=== PATIENT | male | born 1965 | race Caucasian/White ===

== ENCOUNTER 2017-01-29 09:21 | Emergency (ER) | payer SELFPAY ==
[2017-01-29 12:53] VITALS: BP 133/84
--- NOTE | 2017-01-29 13:51 | Emergency Department Report ---
ED ENT HPI - General Chief complaint: Sore Throat Stated complaint: VALE Time Seen by Provider: 01/29/17 12:38 Source: patient Mode of arrival: Ambulatory Limitations: No Limitations - History of Present Illness Initial comments: Patient states that he woke up this morning and noticed that he had a sore throat and it felt swollen and having pain with swallowing; denies fevers, cough and ear pain MD complaint: sore throat, difficulty swallowing -: This morning Location: throat Severity: moderate Severity scale (0 -10): 6 Quality: sharp Consistency: intermittent Worsens with: swallowing Associated Symptoms: pain with swallowing, sore throat. denies: fever, cough, gum swelling, toothache, hearing loss, discharge from ear, rhinorrhea - Related Data Previous Rx's Medication Instructions Recorded Last Taken Type Ondansetron [Zofran Odt] 4 mg PO TID PRN #15 tab.rapdis 01/19/16 Unknown Rx Sennosides/Docusate Sodium 1 each PO BID #16 tablet 01/19/16 Unknown Rx [Senna-Docusate Sodium Tablet] oxyCODONE /ACETAMINOPHEN [Percocet 1 tab PO Q6HR PRN #20 tablet 01/19/16 Unknown Rx 5/325] Allergies Allergy/AdvReac Type Severity Reaction Status Date / Time No Known Allergies Allergy Verified 01/15/16 12:01 ED Dental HPI - General Chief complaint: Sore Throat Stated complaint: VALE Time Seen by Provider: 01/29/17 12:38 Source: patient Mode of arrival: Ambulatory Limitations: No Limitations - Related Data Previous Rx's Medication Instructions Recorded Last Taken Type Ondansetron [Zofran Odt] 4 mg PO TID PRN #15 tab.rapdis 01/19/16 Unknown Rx Sennosides/Docusate Sodium 1 each PO BID #16 tablet 01/19/16 Unknown Rx [Senna-Docusate Sodium Tablet] oxyCODONE /ACETAMINOPHEN [Percocet 1 tab PO Q6HR PRN #20 tablet 01/19/16 Unknown Rx 5/325] Allergies Allergy/AdvReac Type Severity Reaction Status Date / Time No Known Allergies Allergy Verified 01/15/16 12:01 ED Review of Systems ROS: Stated complaint: VALE Other details as noted in HPI Constitutional: denies: chills, fever Eyes: denies: eye discharge ENT: throat pain, congestion (chronic). denies: ear pain, dental pain, hearing loss, epistaxis Respiratory: denies: cough, shortness of breath, wheezing Cardiovascular: denies: chest pain, palpitations Gastrointestinal: denies: abdominal pain, nausea, vomiting, diarrhea Musculoskeletal: denies: back pain, myalgia Skin: denies: rash Neurological: denies: headache, weakness ED Past Medical Hx - Past Medical History Hx Congestive Heart Failure: No Hx Diabetes: No Hx Liver Disease: Yes (biliary obstructions, elevated enyzmes) Hx Asthma: No Hx COPD: No Hx HIV: No - Social History Smoking Status: Never Smoker Substance Use Type: Alcohol - Medications Home Medications: Home Medications Medication Instructions Recorded Confirmed Last Taken Type Ondansetron [Zofran Odt] 4 mg PO TID PRN #15 tab.rapdis 01/19/16 Unknown Rx Sennosides/Docusate Sodium 1 each PO BID #16 tablet 01/19/16 Unknown Rx [Senna-Docusate Sodium Tablet] oxyCODONE /ACETAMINOPHEN [Percocet 1 tab PO Q6HR PRN #20 tablet 01/19/16 Unknown Rx 5/325] ED Physical Exam - General Limitations: No Limitations General appearance: alert, in no apparent distress - Head Head exam: Present: atraumatic, normocephalic, normal inspection - Eye Eye exam: Present: normal appearance, PERRL, EOMI Pupils: Present: normal accommodation - ENT ENT exam: Present: mucous membranes moist, TM's normal bilaterally, normal external ear exam. Absent: normal orophraynx (Pharynx - erythematous and edematous) - Neck Neck exam: Present: full ROM, lymphadenopathy (mild submandibular lymphadenopathy). Absent: tenderness - Respiratory Respiratory exam: Present: normal lung sounds bilaterally. Absent: respiratory distress, wheezes, rales, rhonchi, stridor - Cardiovascular Cardiovascular Exam: Present: regular rate, normal rhythm, normal heart sounds - Extremities Exam Extremities exam: Present: full ROM - Back Exam Back exam: Present: full ROM - Neurological Exam Neurological exam: Present: alert, oriented X3, normal gait - Psychiatric Psychiatric exam: Present: normal affect, normal mood - Skin Skin exam: Present: warm, dry, intact, normal color. Absent: rash ED Course Vital Signs 01/29/17 01/29/17 09:28 12:20 Temperature 99.0 F 98.3 F Pulse Rate 93 H 65 Respiratory 20 18 Rate Blood Pressure 145/94 Blood Pressure 133/84 [Right] O2 Sat by Pulse 98 100 Oximetry - Reevaluation(s) Reevaluation #1: 01/29/17 13:54 Medicated with decadron ED Medical Decision Making - Medical Decision Making Told patient to gargle with warm salt water every 2 hours, drink plenty of fluids, tylenol or motrin for fevers or pain and follow up with PCP if sxs don' t improve, he verbalized understanding Critical care attestation.: If time is entered above; I have spent that time in minutes in the direct care of this critically ill patient, excluding procedure time. ED Disposition Clinical Impression: Acute pharyngitis Qualifiers: Pharyngitis/tonsillitis etiology: unspecified etiology Qualified Code(s): J02.9 - Acute pharyngitis, unspecified Disposition: DISCHARGED TO HOME OR SELFCARE Is pt being admited?: No Does the pt Need Aspirin: No Condition: Stable Instructions: Pharyngitis (ED) Referrals: PRIMARY CARE, [Primary Care Provider] - 3-5 Days Time of Disposition: 13:56 Print Language: RWANDAN
[2017-01-29] MEDS ORDERED: DECADRON PO ONE (13:53)
== END 2017-01-29 14:08 | disposition home or self-care (01) ==
LOC: ED 09:21
DX: J02.9 Acute pharyngitis, unspecified (principal)
CPT/HCPCS: 87116; 87430; 99282; J8540

== ENCOUNTER 2017-07-11 07:07 | Emergency (ER) | payer SELFPAY ==
[2017-07-11] MEDS ORDERED: BENADRYL IV ONE (07:33)
[2017-07-11] MEDS ORDERED: PEPCID IV ONE (07:33)
[2017-07-11] MEDS ORDERED: DECADRON IV ONE (07:33)
--- NOTE | 2017-07-11 08:04 | Emergency Department Report ---
ED Shortness of Breath HPI - General Chief Complaint: Dyspnea/Respdistress Stated Complaint: THROAT SWELLING/DRY MOUTH Time Seen by Provider: 07/11/17 07:26 Source: patient Mode of arrival: Ambulatory Limitations: No Limitations - History of Present Illness Initial Comments: 52-year-old male with a past medical history of biliary obstruction treated with ERCP and January presents to the hospital complaining of throat swelling, dry mouth, shortness of breath. Symptoms started at 5:30 AM upon awaking. Symptoms are constant without urinating or alleviating factors. No wheezing or rash reported. Patient took antacid for burning epigastric pain last night. He has taken this medication in the past. Denies any new medication. Medical record reviewed. The patient was here in January with similar symptoms. Improved after by mouth Decadron. Diagnosis at time pharyngitis. Strep screen was negative - Related Data Previous Rx's Medication Instructions Recorded Last Taken Type Ondansetron [Zofran Odt] 4 mg PO TID PRN #15 tab.rapdis 01/19/16 Unknown Rx Sennosides/Docusate Sodium 1 each PO BID #16 tablet 01/19/16 Unknown Rx [Senna-Docusate Sodium Tablet] oxyCODONE /ACETAMINOPHEN [Percocet 1 tab PO Q6HR PRN #20 tablet 01/19/16 Unknown Rx 5/325] Famotidine [Pepcid] 20 mg PO BID #60 tablet 07/11/17 Unknown Rx Prednisone [predniSONE 10 mg 10 mg PO .TAPER #1 tab.ds.pk 07/11/17 Unknown Rx (6-Day Pack, 21 Tabs)] diphenhydrAMINE [Benadryl CAP] 25 mg PO Q6HR PRN #30 capsule 07/11/17 Unknown Rx Allergies Allergy/AdvReac Type Severity Reaction Status Date / Time No Known Allergies Allergy Verified 01/15/16 12:01 ED Review of Systems ROS: Stated complaint: THROAT SWELLING/DRY MOUTH Other details as noted in HPI Comment: All other systems reviewed and negative Other: Constitutional: No fevers chills Eyes: No eye pain visual changes ENT: as per hpi Neck: Denies pain Respiratory: hortness of breath Cardiovascular: Denies chest pain GI: Denies abdominal pain, nausea, vomiting : Denies dysuria Musculoskeletal: Denies back pain Skin: Denies rash, lesions, erythema Neurologic: Denies headache, numbness, weakness Psychiatric: Denies suicidal ideation, hallucinations ED Past Medical Hx - Past Medical History Previous Medical History?: Yes Hx Congestive Heart Failure: No Hx Diabetes: No Hx Liver Disease: Yes (biliary obstructions, elevated enyzmes) Hx Asthma: No Hx COPD: No Hx HIV: No - Surgical History Past Surgical History?: No - Social History Smoking Status: Never Smoker Substance Use Type: None - Medications Home Medications: Home Medications Medication Instructions Recorded Confirmed Last Taken Type Ondansetron [Zofran Odt] 4 mg PO TID PRN #15 tab.rapdis 01/19/16 Unknown Rx Sennosides/Docusate Sodium 1 each PO BID #16 tablet 01/19/16 Unknown Rx [Senna-Docusate Sodium Tablet] oxyCODONE /ACETAMINOPHEN [Percocet 1 tab PO Q6HR PRN #20 tablet 01/19/16 Unknown Rx 5/325] Famotidine [Pepcid] 20 mg PO BID #60 tablet 07/11/17 Unknown Rx Prednisone [predniSONE 10 mg 10 mg PO .TAPER #1 tab.ds.pk 07/11/17 Unknown Rx (6-Day Pack, 21 Tabs)] diphenhydrAMINE [Benadryl CAP] 25 mg PO Q6HR PRN #30 capsule 07/11/17 Unknown Rx ED Physical Exam - General Limitations: No Limitations - Other Other exam information: General: No limitations, patient is alert in no acute distress Head exam: Atraumatic, normocephalic Eyes exam: Normal appearance, pupils equal reactive to light, extraocular movements intact ENT: Moist mucous membrane, some mild redness to the posterior pharynx is without swelling, exudates, or thrush. No stridor, no muffled voice Neck exam: Normal inspection, full range of motion, no meningismus nontender Respiratory exam: Clear to auscultation bilateral, no wheezes, rales, crackles Cardiovascular: Normal rate and rhythm, normal heart sounds Abdomen: Soft, nondistended, and nontender, with normal bowel sounds, no rebound, or guarding Extremity: Full range of motion normal inspection no deformity Back: Normal Inspection, full range of motion, no tenderness Neurologic: Alert, oriented x3, cranial nerves intact, no motor or sensory deficit Psychiatric: normal affect, normal mood Skin: Warm, dry, intact ED Course Vital Signs 07/11/17 07/11/17 07/11/17 07:19 07:42 07:45 Temperature 98.1 F Pulse Rate 84 90 Respiratory 22 15 12 Rate Blood Pressure 156/104 O2 Sat by Pulse 100 98 98 Oximetry 07/11/17 07/11/17 07/11/17 07:46 08:00 08:15 Temperature Pulse Rate 71 77 71 Respiratory 12 19 Rate Blood Pressure 157/103 137/88 O2 Sat by Pulse 97 95 Oximetry - Reevaluation(s) Reevaluation #1: 07/11/17 09:05 pt states throat tightness is improving but his mouth still feels dry. Reevaluation #2: 07/11/17 09:17 Patient states he feels better and ready to go ED Medical Decision Making - Medical Decision Making no visible swelling, hoarseness, voice changes, stridor, or respiratory distress noted. I will place patient on H2 aria for GERD symptoms and treat several days with steroids and Benadryl for allergic reaction. Outpatient follow-up with temp recruiter and PMD will be suggested - Differential Diagnosis infection, allergic reaction, angioedema Critical Care Time: No Critical care attestation.: If time is entered above; I have spent that time in minutes in the direct care of this critically ill patient, excluding procedure time. ED Disposition Clinical Impression: Throat tightness, GERD (gastroesophageal reflux disease) Disposition: - TO HOME OR SELFCARE Is pt being admited?: No Does the pt Need Aspirin: No Condition: Stable Instructions: Allergies (ED), Gastroesophageal Reflux in Children (ED) Additional Instructions: Take the medication as prescribed. Follow up with the primary care doctor and temp recruiter. Return if symptoms worsen. [place] la medicacin segn lo prescrito. Seguimiento con el mdico de atencin primaria y alergista. Regrese si los sntomas empeoran Prescriptions: diphenhydrAMINE [Benadryl CAP] 25 mg PO Q6HR PRN #30 capsule PRN Reason: Allergic Reaction Famotidine [Pepcid] 20 mg PO BID #60 tablet Prednisone [predniSONE 10 mg (6-Day Pack, 21 Tabs)] 10 mg PO .TAPER #1 tab.ds.pk Referrals: [facility] [Provider Group] - 3-5 Days (Primary care clinic) TIM BOONE MD [Staff Physician] - 3-5 Days (Social Organization Professor) KAHLIL PATRICK MD [Referring] - 3-5 Days (Social Organization Professor) KENDALL BEE MD [Referring] - 3-5 Days (Social Organization Professor) Time of Disposition: 09:21 Print Language: YI
[2017-07-11 09:23] VITALS: BP 147/86
== END 2017-07-11 09:33 | disposition home or self-care (01) ==
LOC: ED 07:07
DX: K21.9 Gastro-esophageal reflux disease without esophagitis (principal)
CPT/HCPCS: 82962; 96374; 96375; 99283; J1100; J1200

== ENCOUNTER 2017-10-19 21:05 | Emergency (ER) | payer OTHER ==
[2017-10-19] MEDS ORDERED: MOTRIN PO ONE (21:27)
--- NOTE | 2017-10-20 03:13 | Emergency Department Report ---
ED ENT HPI - General Chief complaint: Sore Throat Stated complaint: SORE THROAT Time Seen by Provider: 10/20/17 01:07 Source: patient Mode of arrival: Ambulatory Limitations: No Limitations - History of Present Illness Initial comments: This is a 52 y.o. male presenting with sore throat and difficulty swallowing. Patient states he was here 3 months ago with the same thing. He was advised to follow up with allergy but he didn't go because4 it got better. He isn't sure if he ate something to cause symptoms. States his mouth is so dry, he is drinking water all the time. He felt like his throat was closing up. MD complaint: sore throat, difficulty swallowing -: days(s) (2) Location: throat Severity: moderate Severity scale (0 -10): 7 Quality: aching Consistency: intermittent Improves with: none Worsens with: swallowing, eating Associated Symptoms: cough, sore throat. denies: fever, gum swelling, toothache , pain with swallowing, tinnitus, hearing loss, discharge from ear, rhinorrhea - Related Data Previous Rx's Medication Instructions Recorded Last Taken Type Ondansetron [Zofran Odt] 4 mg PO TID PRN #15 tab.rapdis 01/19/16 Unknown Rx Sennosides/Docusate Sodium 1 each PO BID #16 tablet 01/19/16 Unknown Rx [Senna-Docusate Sodium Tablet] oxyCODONE /ACETAMINOPHEN [Percocet 1 tab PO Q6HR PRN #20 tablet 01/19/16 Unknown Rx 5/325] Famotidine [Pepcid] 20 mg PO BID #60 tablet 07/11/17 Unknown Rx Prednisone [predniSONE 10 mg 10 mg PO .TAPER #1 tab.ds.pk 07/11/17 Unknown Rx (6-Day Pack, 21 Tabs)] diphenhydrAMINE [Benadryl CAP] 25 mg PO Q6HR PRN #30 capsule 07/11/17 Unknown Rx Prednisone [predniSONE 5 mg (6-Day 5 mg PO .TAPER #1 tab.ds.pk 10/20/17 Unknown Rx Pack, 21 Tabs)] Allergies Allergy/AdvReac Type Severity Reaction Status Date / Time No Known Allergies Allergy Verified 01/15/16 12:01 ED Dental HPI - General Chief complaint: Sore Throat Stated complaint: SORE THROAT Time Seen by Provider: 10/20/17 01:07 Source: patient Mode of arrival: Ambulatory Limitations: No Limitations - Related Data Previous Rx's Medication Instructions Recorded Last Taken Type Ondansetron [Zofran Odt] 4 mg PO TID PRN #15 tab.rapdis 01/19/16 Unknown Rx Sennosides/Docusate Sodium 1 each PO BID #16 tablet 01/19/16 Unknown Rx [Senna-Docusate Sodium Tablet] oxyCODONE /ACETAMINOPHEN [Percocet 1 tab PO Q6HR PRN #20 tablet 01/19/16 Unknown Rx 5/325] Famotidine [Pepcid] 20 mg PO BID #60 tablet 07/11/17 Unknown Rx Prednisone [predniSONE 10 mg 10 mg PO .TAPER #1 tab.ds.pk 07/11/17 Unknown Rx (6-Day Pack, 21 Tabs)] diphenhydrAMINE [Benadryl CAP] 25 mg PO Q6HR PRN #30 capsule 07/11/17 Unknown Rx Prednisone [predniSONE 5 mg (6-Day 5 mg PO .TAPER #1 tab.ds.pk 10/20/17 Unknown Rx Pack, 21 Tabs)] Allergies Allergy/AdvReac Type Severity Reaction Status Date / Time No Known Allergies Allergy Verified 01/15/16 12:01 ED Review of Systems ROS: Stated complaint: SORE THROAT Other details as noted in HPI Constitutional: no symptoms reported, see HPI. denies: chills, diaphoresis, fever, malaise, weakness Eyes: as per HPI. denies: eye pain, eye discharge, vision change ENT: as per HPI, throat pain. denies: ear pain, dental pain, hearing loss, epistaxis, congestion Respiratory: no symptoms reported, see HPI, cough. denies: orthopnea, shortness of breath, SOB with exertion, SOB at rest, stridor, wheezing Cardiovascular: as per HPI. denies: chest pain, palpitations, dyspnea on exertion, orthopnea, edema, syncope, paroxysmal nocturnal dyspnea Neurological: as per HPI. denies: headache, weakness, numbness, paresthesias, confusion, abnormal gait, vertigo Psychiatric: as per HPI. denies: anxiety, depression, auditory hallucinations, visual hallucinations, homicidal thoughts, suicidal thoughts ED Past Medical Hx - Past Medical History Hx Congestive Heart Failure: No Hx Diabetes: No Hx Liver Disease: Yes (biliary obstructions, elevated enyzmes) Hx Asthma: No Hx COPD: No Hx HIV: No - Surgical History Past Surgical History?: No - Social History Smoking Status: Never Smoker Substance Use Type: None - Medications Home Medications: Home Medications Medication Instructions Recorded Confirmed Last Taken Type Ondansetron [Zofran Odt] 4 mg PO TID PRN #15 tab.rapdis 01/19/16 Unknown Rx Sennosides/Docusate Sodium 1 each PO BID #16 tablet 01/19/16 Unknown Rx [Senna-Docusate Sodium Tablet] oxyCODONE /ACETAMINOPHEN [Percocet 1 tab PO Q6HR PRN #20 tablet 01/19/16 Unknown Rx 5/325] Famotidine [Pepcid] 20 mg PO BID #60 tablet 07/11/17 Unknown Rx Prednisone [predniSONE 10 mg 10 mg PO .TAPER #1 tab.ds.pk 07/11/17 Unknown Rx (6-Day Pack, 21 Tabs)] diphenhydrAMINE [Benadryl CAP] 25 mg PO Q6HR PRN #30 capsule 07/11/17 Unknown Rx Prednisone [predniSONE 5 mg (6-Day 5 mg PO .TAPER #1 tab.ds.pk 10/20/17 Unknown Rx Pack, 21 Tabs)] ED Physical Exam - General Limitations: No Limitations General appearance: alert, in no apparent distress - Head Head exam: Present: normal inspection. Absent: atraumatic - Eye Eye exam: Present: normal appearance, PERRL. Absent: EOMI, scleral icterus, conjunctival injection, nystagmus, periorbital swelling, periorbital tenderness , other - ENT ENT exam: Present: other (erthematous phraynx, tonsils normal, no exudate) - Neck Neck exam: Present: normal inspection, full ROM. Absent: tenderness, meningismus, lymphadenopathy, thyromegaly - Respiratory Respiratory exam: Present: normal lung sounds bilaterally. Absent: respiratory distress, wheezes, rales, rhonchi, stridor, chest wall tenderness, accessory muscle use, decreased breath sounds, prolonged expiratory - Cardiovascular Cardiovascular Exam: Present: regular rate, normal rhythm. Absent: bradycardia , tachycardia, irregular rhythm, normal heart sounds, systolic murmur, diastolic murmur, rubs, gallop, clicks, JVD, S3, S4 - Neurological Exam Neurological exam: Present: alert, oriented X3, CN II-XII intact, normal gait. Absent: altered, abnormal gait, motor sensory deficit, reflexes normal - Psychiatric Psychiatric exam: Present: normal affect, normal mood. Absent: depressed, agitated, anxious, flat affect, manic, homicidal ideation, suicidal ideation - Skin Skin exam: Present: warm, dry, intact, normal color. Absent: rash, cyanosis, diaphoretic, erythema, urticaria, vesicles, petechiae, pallor, abrasion, ecchymosis ED Course Vital Signs 10/19/17 10/20/17 21:18 03:41 Temperature 98.7 F Pulse Rate 69 68 Respiratory 16 18 Rate Blood Pressure 143/93 Blood Pressure 124/84 [Left] O2 Sat by Pulse 98 100 Oximetry Critical care attestation.: If time is entered above; I have spent that time in minutes in the direct care of this critically ill patient, excluding procedure time. ED Disposition Clinical Impression: GERD (gastroesophageal reflux disease) Qualifiers: Esophagitis presence: with esophagitis Qualified Code(s): K21.0 - Gastro- esophageal reflux disease with esophagitis Angioedema Qualifiers: Encounter type: subsequent encounter Qualified Code(s): T78.3XXD - Angioneurotic edema, subsequent encounter Disposition: - TO HOME OR SELFCARE Is pt being admited?: No Does the pt Need Aspirin: No Condition: Stable Instructions: Gastroesophageal Reflux Disease (ED) Additional Instructions: Follow up with allergy clinic. Continue taking pepcid for GERD. Prescriptions: Prednisone [predniSONE 5 mg (6-Day Pack, 21 Tabs)] 5 mg PO .TAPER #1 tab.ds.pk Referrals: PRIMARY CARE, [Primary Care Provider] - 3-5 Days [facility] [Outside] - 3-5 Days Time of Disposition: 03:34 Print Language: FAROESE
[2017-10-20 03:42] VITALS: BP 124/84
== END 2017-10-20 03:41 | disposition home or self-care (01) ==
LOC: ED 21:05
DX: K21.0 Gastro-esophageal reflux disease with esophagitis (principal); T78.3XXD Angioneurotic edema, subsequent encounter
CPT/HCPCS: 87116; 87430; 99282

== ENCOUNTER 2017-12-06 16:59 | Inpatient (IN) | payer OTHER ==
[2017-12-06] MEDS ORDERED: ASPIRIN PO ONE (19:44)
[2017-12-06 20:01] LABS: Basophils % (Auto) 0.4 % (0.0-1.8); Eosinophils # (Auto) 0.1 K/mm3 (0.0-0.4); Eosinophils % (Auto) 0.6 % (0.0-4.3); Hematocrit 47.6 % (35.5-45.6); Hemoglobin 16.3 gm/dl (11.8-15.2); Lymphocytes # (Auto) 1.7 K/mm3 (1.2-5.4); Lymphocytes % (Auto) 14.9 % (13.4-35.0); Mean Corpuscular HGB Conc 34 % (32-34); Mean Corpuscular Hemoglobin 29 pg (28-32); Mean Corpuscular Volume 86 fl (84-94); Monocytes # (Auto) 0.9 K/mm3 (0.0-0.8); Platelet Count 225 K/mm3 (140-440); Red Blood Count 5.55 M/mm3 (3.65-5.03); Red Cell Distribution Width 13.5 % (13.2-15.2)
[2017-12-06 20:22] LABS: BUN/Creatinine Ratio 17; Blood Urea Nitrogen 15 mg/dL (9-20); Calcium 8.8 mg/dL (8.4-10.2); Hemolysis Index 6
[2017-12-07] MEDS ORDERED: ALUM-MAG HYDROX-SIMETH 200-200-20MG/5ML PO ONE (09:45)
[2017-12-07] MEDS ORDERED: LIDOCAINE VISCOUS 2% PO ONE (09:45)
--- NOTE | 2017-12-07 09:55 | Emergency Department Report ---
HPI - General Chief Complaint: Chest Pain Time Seen by Provider: 12/07/17 09:31 - HPI HPI: This is a 52-year-old male presents to the emergency department with complaint of a 3-4 day history of some pain in the lower midline chest and the upper epigastric abdomen. He says that it worsens after eating and it is a burning sensation. He denies any shortness of breath, nausea, vomiting. He says that this happened to him one time in the past and it was secondary to gallstones but he does still have his gallbladder. He has not taken anything for her symptoms at presentation. He denies any tobacco or illicit drug use or abuse. No recent travel or sick contacts at home. He does have a PCP but has not seen them regarding his symptoms. ED Past Medical Hx - Past Medical History Hx Congestive Heart Failure: No Hx Diabetes: No Hx Liver Disease: Yes (biliary obstructions, elevated enyzmes) Hx Asthma: No Hx COPD: No Hx HIV: No - Surgical History Past Surgical History?: No - Social History Smoking Status: Never Smoker Substance Use Type: None - Medications Home Medications: Home Medications Medication Instructions Recorded Confirmed Last Taken Type Ondansetron [Zofran Odt] 4 mg PO TID PRN #15 tab.rapdis 01/19/16 Unknown Rx Sennosides/Docusate Sodium 1 each PO BID #16 tablet 01/19/16 Unknown Rx [Senna-Docusate Sodium Tablet] oxyCODONE /ACETAMINOPHEN [Percocet 1 tab PO Q6HR PRN #20 tablet 01/19/16 Unknown Rx 5/325] Famotidine [Pepcid] 20 mg PO BID #60 tablet 07/11/17 Unknown Rx Prednisone [predniSONE 10 mg 10 mg PO .TAPER #1 tab.ds.pk 07/11/17 Unknown Rx (6-Day Pack, 21 Tabs)] diphenhydrAMINE [Benadryl CAP] 25 mg PO Q6HR PRN #30 capsule 07/11/17 Unknown Rx Prednisone [predniSONE 5 mg (6-Day 5 mg PO .TAPER #1 tab.ds.pk 10/20/17 Unknown Rx Pack, 21 Tabs)] ED Review of Systems ROS: Stated complaint: CHEST PAIN Other details as noted in HPI Comment: All other systems reviewed and negative Constitutional: denies: chills, fever Eyes: denies: eye pain, eye discharge, vision change ENT: denies: ear pain, throat pain Respiratory: denies: cough, shortness of breath, wheezing Cardiovascular: chest pain. denies: palpitations Gastrointestinal: abdominal pain. denies: vomiting Genitourinary: denies: urgency, dysuria Musculoskeletal: denies: back pain, joint swelling, arthralgia Skin: denies: rash, lesions Neurological: denies: headache, weakness, paresthesias Physical Exam - Physical Exam Vital Signs: Vital Signs 12/06/17 12/06/17 19:29 19:39 Temperature 98.2 F 98.2 F Pulse Rate 65 60 Respiratory 18 16 Rate Blood Pressure 128/75 128/75 O2 Sat by Pulse 97 100 Oximetry Physical Exam: GENERAL: The patient is well-developed well-nourished. HENT: Normocephalic. Atraumatic. Patient has moist mucous membranes. EYES: Extraocular motions are intact. Pupils equal reactive to light bilaterally. NECK: Supple. Trachea is midline. CHEST/LUNGS: Clear to auscultation. There is no respiratory distress noted. HEART/CARDIOVASCULAR: Regular. There is no tachycardia. There is no murmur. ABDOMEN: Abdomen is soft. There is some tenderness palpation to the right upper quadrant and epigastric abdomen. No guarding or rebound tenderness. Patient has normal bowel sounds. There is no abdominal distention. SKIN: Skin is warm and dry. NEURO: The patient is awake, alert, and oriented. The patient is cooperative. The patient has no focal neurologic deficits. The patient has normal speech. MUSCULOSKELETAL: There is no tenderness or deformity. There is no limitation range of motion. There is no evidence of acute injury. ED Course Vital Signs 12/06/17 12/06/17 19:29 19:39 Temperature 98.2 F 98.2 F Pulse Rate 65 60 Respiratory 18 16 Rate Blood Pressure 128/75 128/75 O2 Sat by Pulse 97 100 Oximetry ED Medical Decision Making - Lab Data Result diagrams: 12/06/17 19:50 12/06/17 19:50 - EKG Data -: EKG Interpreted by Dc EKG shows normal: sinus rhythm, axis, intervals, QRS complexes, ST-T waves Rate: normal - EKG Data When compared to previous EKG there are: previous EKG unavailable Interpretation: normal EKG - Radiology Data Radiology results: report reviewed, image reviewed interpreted by me: Chest x-ray does not show any acute process. There are no pleural effusions, obvious pneumonia and there is no pneumothorax. Abdominal x-ray shows nonspecific bowel gas. RIGHT UPPER QUADRANT ABDOMINAL ULTRASOUND: 12/06/17 16:59:00 CLINICAL: Upper abdominal pain. FINDINGS: High-resolution ultrasound demonstrated diffuse increased echogenicity of the liver consistent with either hepatic steatosis or hepatocellular disease. No liver enlargement, nodularity or mass. Normal hepatic vasculature and inferior vena cava. The gallbladder is contracted and contains shadowing calculi (a wall-echo shadow complex). No pericholecystic fluid. Normal intrapelvic bile duct. The common bile duct is enlarged and measures 8.5 mm diameter. The pancreas was not well imaged because of bowel gas. Normal upper abdominal aorta. Normal right renal collecting system. No right renal mass, calculus or cyst. The right kidney demonstrates mild increased echogenicity and measures 11.3 x 4.4 x 5.0 cm. No ascites or mass. IMPRESSION: 1. Contracted gallbladder filled with stones. 2. No signs which are specific for acute cholecystitis. 3. Hepatic steatosis. 4. CBD dilatation suggesting possible choledocholithiasis. Although no CBD stone is identified, the entire CBD was not imaged. Transcribed By: REF Dictated By: FAHAD WILL MD Electronically Authenticated By: FAHAD WILL MD Signed Date/Time: 12/07/17 9575 - Medical Decision Making Patient originally came in through triage with complaint of chest pain, however during my H&P the patient explains that it is more upper abdominal and feels like when he previously had cholelithiasis and choledocholithiasis a year or so ago. On examination he does have more tenderness to palpation in the upper quadrants of the abdomen. He is not jaundiced appearing. He did not have LFTs or lipase drawn previously so I added these labs and they came back showing transaminitis and hyperbilirubinemia. Ultrasound shows cholecystitis and common bile duct of dictation suggesting possible choledocholithiasis. This is almost the same presentation as the last time he was here. I spoke with gastroenterology who agrees the patient should have an MRCP. Patient will be admitted to the hospital and has been accepted for admission by the hospitalist , Dr. Sneed. - Differential Diagnosis cholecystitis, cholelithiasis, Choledocholithiasis, [place], Pancreatitis, Hepat Critical Care Time: No Critical care attestation.: If time is entered above; I have spent that time in minutes in the direct care of this critically ill patient, excluding procedure time. ED Disposition Clinical Impression: Transaminitis, Hyperbilirubinemia Cholelithiasis Qualifiers: Cholelithiasis location: gallbladder Cholecystitis presence: without cholecystitis Biliary obstruction: with biliary obstruction Qualified Code(s): K80.21 - Calculus of gallbladder without cholecystitis with obstruction Disposition: 09 OP ADMIT IP TO THIS HOSP Is pt being admited?: Yes Condition: Stable Referrals: WILSON ESPARZA MD [Primary Care Provider] - 3-5 Days Time of Disposition: 12:23
--- NOTE | 2017-12-07 10:19 | XRay Report ---
ABDOMINAL SERIES WITH CXR THREE VIEWS: 12/07/17 09:34:00 CLINICAL: Chest pain. FINDINGS: Supine upright views demonstrate a normal bowel gas pattern . No distended bowel or air-fluid levels. A stent is identified in the right upper quadrant and is presumably a biliary stent in the distal common bile duct. No pneumoperitoneum. No mass or suspicious calcifications.The bones and soft tissues are normal. The chest is normal. IMPRESSION: Negative chest and negative abdomen with a biliary stent.
[2017-12-07 10:52] LABS: Albumin 4.3 g/dL (3.9-5); Bilirubin,Direct 2.5 mg/dL (0-0.2)
--- NOTE | 2017-12-07 12:01 | Ultrasound Report ---
RIGHT UPPER QUADRANT ABDOMINAL ULTRASOUND: 12/06/17 16:59:00 CLINICAL: Upper abdominal pain. FINDINGS: High-resolution ultrasound demonstrated diffuse increased echogenicity of the liver consistent with either hepatic steatosis or hepatocellular disease. No liver enlargement, nodularity or mass. Normal hepatic vasculature and inferior vena cava. The gallbladder is contracted and contains shadowing calculi (a wall-echo shadow complex). No pericholecystic fluid. Normal intrapelvic bile duct. The common bile duct is enlarged and measures 8.5 mm diameter. The pancreas was not well imaged because of bowel gas. Normal upper abdominal aorta. Normal right renal collecting system. No right renal mass, calculus or cyst. The right kidney demonstrates mild increased echogenicity and measures 11.3 x 4.4 x 5.0 cm. No ascites or mass. IMPRESSION: 1. Contracted gallbladder filled with stones. 2. No signs which are specific for acute cholecystitis. 3. Hepatic steatosis. 4. CBD dilatation suggesting possible choledocholithiasis. Although no CBD stone is identified, the entire CBD was not imaged.
--- NOTE | 2017-12-07 15:42 | Magnetic Resonance Report ---
FINAL REPORT PROCEDURE: MR ABDOMEN MRCP TECHNIQUE: MRI of the abdomen was performed without contrast. Magnetic resonance cholangiopancreatography of the biliary system was performed without paramagnetic contrast. The original data was reconstructed in 3-dimensions. HISTORY: cholelithiasis, concern for choledolithiasis. It is reported that the patient has not had prior cholecystectomy COMPARISON: MRCP 01/16/2016 FINDINGS: Liver: Limited views are normal. Intrahepatic bile ducts: Normal. Extrahepatic bile ducts: The common bile duct measures up to 7 millimeters in caliber. No filling defects are seen Gallbladder: Not well visualized. There are focal areas of low signal in the region the gallbladder fossa, possibly related to gallstones within a contracted gallbladder, if the patient has not had prior cholecystectomy. Pancreatic ducts: Normal. Bile duct filling defects: None. Spleen, pancreas, adrenal glands, and kidneys are unremarkable. IMPRESSION: No evidence of biliary ductal dilatation or choledocholithiasis
[2017-12-07] MEDS: HEPARIN SUB-Q SCH ×2 (18:29→22:20)
[2017-12-08] MEDS: TYLENOL PO PRN ×3 (00:01→21:29)
--- NOTE | 2017-12-08 00:03 | History and Physical Report ---
History of Present Illness Date of examination: 12/07/17 Date of admission: 12/07/17 12:23 Chief complaint: CC RUQ pain-4 days History of present illness: HPI 52-year-old male presents to the emergency department with complaint of a 3-4 day history of pain in the RUQ and the upper epigastric abdomen. He says that it worsens after eating and it is a burning sensation. He denies any shortness of breath, nausea, vomiting. He says that this happened to him one time in the past and it was secondary to gallstones but he does still have his gallbladder. He has not taken anything for her symptoms at presentation. He denies any tobacco or illicit drug use or abuse. No recent travel or sick contacts at home. Past Medical History Hx Liver Disease: Yes (biliary obstructions, elevated enyzmes) Surgical History Past Surgical History?: No -Social History Smoking Status: Never Smoker Substance Use Type: None Family Hx Htn - Medications Home Medications: Home Medications Medication Instructions Recorded Confirmed Last Taken Type Ondansetron [Zofran Odt] 4 mg PO TID PRN #15 tab.rapdis 01/19/16 Unknown Rx Sennosides/Docusate Sodium 1 each PO BID #16 tablet 01/19/16 Unknown Rx [Senna-Docusate Sodium Tablet] oxyCODONE /ACETAMINOPHEN [Percocet 1 tab PO Q6HR PRN #20 tablet 01/19/16 Unknown Rx 5/325] Famotidine [Pepcid] 20 mg PO BID #60 tablet 07/11/17 Unknown Rx Prednisone [predniSONE 10 mg 10 mg PO .TAPER #1 tab.ds.pk 07/11/17 Unknown Rx (6-Day Pack, 21 Tabs)] diphenhydrAMINE [Benadryl CAP] 25 mg PO Q6HR PRN #30 capsule 07/11/17 Unknown Rx Prednisone [predniSONE 5 mg (6-Day 5 mg PO .TAPER #1 tab.ds.pk 10/20/17 Unknown Rx Pack, 21 Tabs)] Review of Systems Stated complaint: CHEST PAIN Other details as noted in HPI Comment: All other systems reviewed and negative Constitutional: denies: chills, fever Eyes: denies: eye pain, eye discharge, vision change ENT: denies: ear pain, throat pain Respiratory: denies: cough, shortness of breath, wheezing Cardiovascular: chest pain. denies: palpitations Gastrointestinal: abdominal pain. denies: vomiting Genitourinary: denies: urgency, dysuria Musculoskeletal: denies: back pain, joint swelling, arthralgia Skin: denies: rash, lesions Neurological: denies: headache, weakness, paresthesias Medications and Allergies Allergies Allergy/AdvReac Type Severity Reaction Status Date / Time No Known Allergies Allergy Verified 01/15/16 12:01 Home Medications Medication Instructions Recorded Confirmed Last Taken Type Ranitidine HCl [Zantac 150 MG TAB] 150 mg PO BID 12/07/17 12/07/17 1 Day Ago History ~12/06/17 Active Meds: Active Medications Acetaminophen (Tylenol) 650 mg PO Q4H PRN PRN Reason: Pain, Mild (1-3) Last Admin: 12/08/17 00:01 Dose: 650 mg Heparin Sodium (Porcine) (Heparin) 5,000 unit SUB-Q Q8HR CONRADO Last Admin: 12/07/17 22:20 Dose: 5,000 unit Exam - Constitutional Vitals: Temp Pulse Resp BP Pulse Ox 100.5 F H 91 H 20 135/78 95 12/07/17 20:41 12/07/17 20:41 12/07/17 20:41 12/07/17 20:41 12/07/17 20:41 General appearance: Present: no acute distress, well-nourished - EENT Eyes: Present: PERRL ENT: hearing intact, clear oral mucosa - Neck Neck: Present: supple, normal ROM - Respiratory Respiratory effort: normal Respiratory: bilateral: CTA - Cardiovascular Heart rate: 80 Rhythm: regular Heart Sounds: Present: S1 & S2. Absent: rub, click - Extremities Extremities: no ischemia, pulses intact, pulses symmetrical, No edema Peripheral Pulses: within normal limits - Abdominal General gastrointestinal: Present: tender, normal bowel sounds Localized gastrointestinal: tender: RLQ, guarding: RLQ, rebound: RLQ Male genitourinary: Present: normal - Rectal Rectal Exam: deferred - Integumentary Integumentary: Present: clear, warm, dry - Musculoskeletal Musculoskeletal: gait normal, strength equal bilaterally - Psychiatric Psychiatric: appropriate mood/affect, intact judgment & insight - Neurologic Neurologic: CNII-XII intact, moves all extremities - Allied Health Allied health notes reviewed: nursing, case management Results - Labs CBC & Chem 7: 12/08/17 06:18 12/08/17 06:18 Labs: Laboratory Last Values WBC 11.7 K/mm3 (4.5-11.0) H 12/06/17 19:50 RBC 5.55 M/mm3 (3.65-5.03) H 12/06/17 19:50 Hgb 16.3 gm/dl (11.8-15.2) H 12/06/17 19:50 Hct 47.6 % (35.5-45.6) H 12/06/17 19:50 MCV 86 fl (84-94) 12/06/17 19:50 MCH 29 pg (28-32) 12/06/17 19:50 MCHC 34 % (32-34) 12/06/17 19:50 RDW 13.5 % (13.2-15.2) 12/06/17 19:50 Plt Count 225 K/mm3 (140-440) 12/06/17 19:50 Lymph % (Auto) 14.9 % (13.4-35.0) 12/06/17 19:50 [place] % (Auto) 8.0 % (0.0-7.3) H 12/06/17 19:50 Eos % (Auto) 0.6 % (0.0-4.3) 12/06/17 19:50 Baso % (Auto) 0.4 % (0.0-1.8) 12/06/17 19:50 Lymph # 1.7 K/mm3 (1.2-5.4) 12/06/17 19:50 [place] # 0.9 K/mm3 (0.0-0.8) H 12/06/17 19:50 Eos # 0.1 K/mm3 (0.0-0.4) 12/06/17 19:50 Baso # 0.0 K/mm3 (0.0-0.1) 12/06/17 19:50 Seg Neutrophils % 76.1 % (40.0-70.0) H 12/06/17 19:50 Seg Neutrophils # 8.9 K/mm3 (1.8-7.7) H 12/06/17 19:50 Sodium 139 mmol/L (137-145) 12/06/17 19:50 Potassium 4.4 mmol/L (3.6-5.0) 12/06/17 19:50 Chloride 100.6 mmol/L (98-107) 12/06/17 19:50 Carbon Dioxide 24 mmol/L (22-30) 12/06/17 19:50 Anion Gap 19 mmol/L 12/06/17 19:50 BUN 15 mg/dL (9-20) 12/06/17 19:50 Creatinine 0.9 mg/dL (0.8-1.5) 12/06/17 19:50 Estimated GFR > 60 ml/min 12/06/17 19:50 BUN/Creatinine Ratio 17 % 12/06/17 19:50 Glucose 105 mg/dL (75-100) H 12/06/17 19:50 Calcium 8.8 mg/dL (8.4-10.2) 12/06/17 19:50 Total Bilirubin 5.00 mg/dL (0.1-1.2) H 12/07/17 10:26 Direct Bilirubin 2.5 mg/dL (0-0.2) H 12/07/17 10:26 Indirect Bilirubin 2.5 mg/dL 12/07/17 10:26 AST 316 units/L (5-40) H 12/07/17 10:26 ALT 285 units/L (7-56) H 12/07/17 10:26 Alkaline Phosphatase 129 units/L (35-129) 12/07/17 10:26 Troponin T < 0.010 ng/mL (0.00-0.029) 12/07/17 02:17 Total Protein 7.3 g/dL (6.3-8.2) 12/07/17 10:26 Albumin 4.3 g/dL (3.9-5) 12/07/17 10:26 Albumin/Globulin Ratio 1.4 % 12/07/17 10:26 Lipase 21 units/L (13-60) 12/07/17 10:26 - Imaging and Cardiology EKG: report reviewed (NSR 82) US - abdomen: report reviewed (contracted GB filled with stones and dilated common bile duct suggesting choledocholithiasis) Imaging and Cardiology: MRCP NO CBD STONE Assessment and Plan Advance Directives: Yes (Full code) VTE prophylaxis?: Chemical Plan of care discussed with patient/family: Yes - Patient Problems (1) Choledocholithiasis with obstruction Current Visit: No Status: Acute Qualifiers: Cholecystitis presence: without cholecystitis Qualified Code(s): K80.51 - Calculus of bile duct without cholangitis or cholecystitis with obstruction Plan to address problem: May need ERCP Candidate for Cholecystectomy b/c of recurrence of choledocholithiasis (2) Cholelithiasis Current Visit: Yes Status: Acute Qualifiers: Cholelithiasis location: gallbladder Cholecystitis presence: without cholecystitis Biliary obstruction: with biliary obstruction Qualified Code(s ): K80.21 - Calculus of gallbladder without cholecystitis with obstruction Plan to address problem: MRCP/ERCP May need Cholecystectomy (3) SIRS due to infectious process with acute organ dysfunction Current Visit: Yes Status: Acute Plan to address problem: Started on Zosyn (4) DVT prophylaxis Current Visit: No Status: Acute Plan to address problem: Lovenox
[2017-12-08] MEDS ORDERED: MILK OF MAGNESIA PO PRN (01:26)
[2017-12-08] MEDS ORDERED: MORPHINE IV PRN ×2 (01:26→02:00)
[2017-12-08] MEDS ORDERED: DULCOLAX PR PRN (01:26)
[2017-12-08] MEDS ORDERED: DILAUDID IV PRN (01:26)
[2017-12-08] MEDS ORDERED: TYLENOL PO PRN (01:26)
[2017-12-08] MEDS ORDERED: ZOFRAN IV PRN (01:26)
[2017-12-08] MEDS: D5NS 1,000 ML IV SCH ×2 (03:04→14:16)
[2017-12-08 06:41] LABS: Basophils % (Auto) 0.3 % (0.0-1.8); Eosinophils % (Auto) 0.1 % (0.0-4.3); Hematocrit 47.2 % (35.5-45.6); Lymphocytes # (Auto) 0.9 K/mm3 (1.2-5.4); Lymphocytes % (Auto) 8.1 % (13.4-35.0); Mean Corpuscular HGB Conc 34 % (32-34); Mean Corpuscular Hemoglobin 29 pg (28-32); Mean Corpuscular Volume 86 fl (84-94); Monocytes # (Auto) 1.1 K/mm3 (0.0-0.8); Monocytes % (Auto) 9.7 % (0.0-7.3); Platelet Count 206 K/mm3 (140-440); Red Blood Count 5.52 M/mm3 (3.65-5.03); Red Cell Distribution Width 13.5 % (13.2-15.2)
[2017-12-08 06:52] LABS: Alanine Aminotransferase 240 units/L (7-56); Albumin 3.8 g/dL (3.9-5); BUN/Creatinine Ratio 20; Blood Urea Nitrogen 16 mg/dL (9-20); Calcium 8.6 mg/dL (8.4-10.2); Hemolysis Index 7
[2017-12-08] MEDS ORDERED: ZOSYN/NS 4.5GM/100ML 4.5 GM/100 ML VIAL IV SCH (08:00)
[2017-12-08] MEDS: PEPCID IV SCH ×2 (09:54→21:18)
--- NOTE | 2017-12-08 12:16 | Gastroenterology Consultation ---
History of Present Illness - Reason for Consult Consult date: 12/08/17 choledocholithiasis Requesting physician: BEAR CABRERA - History of Present Illness Patient is a 52 y/o male who presented to ED with c/o RUQ/epigastric abd pain x 3-4 days. LFTs were found to be elevated on admission. Abd u/s showed gallstones with CBD dilatation suggestive of choledocholithiasis, however MRCP was negative for biliary ductal dilation or choledocholithiasis. This morning pt was resting in bed w/o acute distress. He states RUQ/epigastric pain was constant, sharp, and radiated to his back but is now improved. States he had N/ V a few days ago but none since admission. Symptoms are exacerbated with eating. He reports having similar symptoms in the past 2/2 gallstones and underwent an ERCP by Dr. Pierre in 01/2016 with s/p papillotomy w/ extraction of stone but did not have cholecystectomy. Admits to mild fever but denies wt loss , N/V, CP, SOB, dizziness, jaundice, dysphagia, signs of bleeding, or LGI symptoms such as diarrhea or constipation. No NSAID use. No hx of PUD. Past History Past Medical History: other (biliary obstruction 2/2 gallstones requiring ERCP with extraction of stone in 2016) Past Surgical History: No surgical history Social history: denies: smoking, alcohol abuse Medications and Allergies Allergies Allergy/AdvReac Type Severity Reaction Status Date / Time No Known Allergies Allergy Verified 01/15/16 12:01 Home Medications Medication Instructions Recorded Confirmed Last Taken Type Ranitidine HCl [Zantac 150 MG TAB] 150 mg PO BID 12/07/17 12/07/17 1 Day Ago History ~12/06/17 Active Meds: Active Medications Acetaminophen (Tylenol) 650 mg PO Q4H PRN PRN Reason: Pain, Mild (1-3) Last Admin: 12/08/17 05:32 Dose: 650 mg Bisacodyl (Dulcolax) 10 mg AR QDAY PRN PRN Reason: Constipation unrelieved by MOM Enoxaparin Sodium (Lovenox) 40 mg SUB-Q QDAY@2200 CONRADO Famotidine (Pepcid) 20 mg IV BID CONRADO Last Admin: 12/08/17 09:54 Dose: 20 mg Hydromorphone HCl (Dilaudid) 1 mg IV Q3H PRN PRN Reason: Pain , Severe (7-10) Dextrose/Sodium Chloride (D5ns) 1,000 mls @ 100 mls/hr IV DIRECT CONRADO Last Admin: 12/08/17 03:04 Dose: 100 mls/hr Magnesium Hydroxide (Milk Of Magnesia) 30 ml PO Q4H PRN PRN Reason: Constipation Morphine Sulfate (Morphine) 2 mg IV Q4H PRN PRN Reason: Pain, Moderate (4-6) Ondansetron HCl (Zofran) 4 mg IV Q8H PRN PRN Reason: N/V unrelieved by Reglan Review of Systems - Review of Systems All systems: negative Gastrointestinal: abdominal pain (RUQ/epigatric) Exam - Constitutional Vital Signs: Temp Pulse Resp BP Pulse Ox 99.5 F 82 16 127/73 94 12/08/17 07:17 12/08/17 07:17 12/08/17 07:17 12/08/17 07:17 12/08/17 07:17 General appearance: no acute distress - EENT Eyes: PERRL, EOM intact ENT: hearing intact - Respiratory Respiratory: bilateral: CTA - Cardiovascular Rhythm: regular Heart Sounds: Present: S1 & S2 - Gastrointestinal General gastrointestinal: Present: soft, non-tender, non-distended, normal bowel sounds - Integumentary Integumentary: Present: warm, dry - Neurologic Neurological: alert and oriented x3 - Labs CBC & Chem 7: 12/08/17 06:18 12/08/17 06:18 Lab Results: Laboratory Results - last 24 hr 12/08/17 12/08/17 06:18 06:18 WBC 10.9 RBC 5.52 H Hgb 16.0 H Hct 47.2 H MCV 86 MCH 29 MCHC 34 RDW 13.5 Plt Count 206 Lymph % (Auto) 8.1 L [place] % (Auto) 9.7 H Eos % (Auto) 0.1 Baso % (Auto) 0.3 Lymph # 0.9 L [place] # 1.1 H Eos # 0.0 Baso # 0.0 Seg Neutrophils % 81.8 H Seg Neutrophils # 8.9 H Sodium 141 Potassium 4.4 Chloride 104.2 Carbon Dioxide 23 Anion Gap 18 BUN 16 Creatinine 0.8 Estimated GFR > 60 BUN/Creatinine Ratio 20 Glucose 117 H Calcium 8.6 Total Bilirubin 3.00 H AST 135 H ALT 240 H Alkaline Phosphatase 149 H Total Protein 7.1 Albumin 3.8 L Albumin/Globulin Ratio 1.2 Assessment and Plan 1.choledocholithiasis 2.cholelithiasis -WBC 10.9-trended down -temp 99.5 -lipase-WNL -abd U/S showed gallstones with CBD dilatation -MRCP was negative for biliary ductal dilation or choledocholithiasis -S/P ERCP with papillotomy and extraction of stone in 2015 -clinically pt reports abd pain is now improved and LFTs are trending down- most likely stone was passed -no recommendations for ERCP at this time -continue supportive care -surgery has been consulted for possible cholecystectomy- recommend IOC and if positive please re-consult -will sign off
--- NOTE | 2017-12-08 12:32 | Consultation ---
History of Present Illness Consult date: 12/08/17 Reason for consult: abdominal pain Requesting physician: REGLA BALL Chief complaint: Abdominal pain - History of present illness History of present illness: 52yo M who presents with an acute onset of abdominal pain after eating. Reports that this happened to him about 2 years ago and was told that it was related to gallstones. Found to have elevated liver enzymes with stones on US. MRCP neg for biliary obstruction. Reports that pain is better now. Denies F/C/N/V. Did have radiation of pain to the back. Past History Past Medical History: No medical history Past Surgical History: No surgical history Social history: denies: smoking, alcohol abuse, IV drug use Family history: other (gallbladder problems with mom and sister) Medications and Allergies Allergies Allergy/AdvReac Type Severity Reaction Status Date / Time No Known Allergies Allergy Verified 01/15/16 12:01 Home Medications Medication Instructions Recorded Confirmed Last Taken Type Ranitidine HCl [Zantac 150 MG TAB] 150 mg PO BID 12/07/17 12/07/17 1 Day Ago History ~12/06/17 Active Meds: Active Medications Acetaminophen (Tylenol) 650 mg PO Q4H PRN PRN Reason: Pain, Mild (1-3) Last Admin: 12/08/17 05:32 Dose: 650 mg Bisacodyl (Dulcolax) 10 mg PA QDAY PRN PRN Reason: Constipation unrelieved by MOM Enoxaparin Sodium (Lovenox) 40 mg SUB-Q QDAY@2200 [facility] Famotidine (Pepcid) 20 mg IV BID [facility] Last Admin: 12/08/17 09:54 Dose: 20 mg Hydromorphone HCl (Dilaudid) 1 mg IV Q3H PRN PRN Reason: Pain , Severe (7-10) Dextrose/Sodium Chloride (D5ns) 1,000 mls @ 100 mls/hr IV DIRECT [facility] Last Admin: 12/08/17 03:04 Dose: 100 mls/hr Magnesium Hydroxide (Milk Of Magnesia) 30 ml PO Q4H PRN PRN Reason: Constipation Morphine Sulfate (Morphine) 2 mg IV Q4H PRN PRN Reason: Pain, Moderate (4-6) Ondansetron HCl (Zofran) 4 mg IV Q8H PRN PRN Reason: N/V unrelieved by Reglan Review of Systems - Constitutional no weight loss, no fever, no chills, no sweats, no weakness - Cardiovascular chest pain (reports that it has been happening weekly. Not exertion related. Lasts about 30min. Radiates down the left arm) - Respiratory no cough, no cough with sputum, no shortness of breath, no congestion - Gastrointestinal abdominal pain, no nausea, no vomiting, no diarrhea, no BRBPR, no melena, no hematochezia, no heartburn, no dyspepsia/bloating - Muskuloskeletal other (did have right sided back pain when he came in) - Integumentary no rash - Hematologic/Lymphatic no easy bruising, no easy bleeding Exam Vital Signs Temp Pulse Resp BP Pulse Ox 98.2 F 65 18 128/75 97 12/06/17 19:29 12/06/17 19:29 12/06/17 19:29 12/06/17 19:29 12/06/17 19:29 - General physical appearance Positive: well developed, well nourished, no distress, no pain, other (partial Japanese speaking. Spoke via japanese interpreter #[id number]) - Eyes Positive: normal occular movement, icteric - ENT Positive: normal mucosa, no congestion - Respiratory Positive: normal expansion, normal respiratory effort, clear to auscultation - Cardiovascular Rhythm: regular - Abdomen Abdomen: Present: soft, tender (very minimal tenderness in RUQ), bowel sounds normal. Absent: distended, guarding, rigid - Integumentary no rash - Neurologic Neurologic: alert and oriented to time, place and person, motor strength and sensation are grossly intact - Psychiatric Psychiatric: appropriate mood/affect, intact judgment & insight, memory intact, cooperative Results - Labs 12/08/17 06:18 12/08/17 06:18 Abnormal lab results 12/08/17 12/08/17 Range/Units 06:18 06:18 RBC 5.52 H (3.65-5.03) M/mm3 Hgb 16.0 H (11.8-15.2) gm/dl Hct 47.2 H (35.5-45.6) % Lymph % (Auto) 8.1 L (13.4-35.0) % Bound[place] % (Auto) 9.7 H (0.0-7.3) % Lymph # 0.9 L (1.2-5.4) K/mm3 Bound[place] # 1.1 H (0.0-0.8) K/mm3 Seg Neutrophils % 81.8 H (40.0-70.0) % Seg Neutrophils # 8.9 H (1.8-7.7) K/mm3 Glucose 117 H (75-100) mg/dL Total Bilirubin 3.00 H (0.1-1.2) mg/dL AST 135 H (5-40) units/L ALT 240 H (7-56) units/L Alkaline Phosphatase 149 H (35-129) units/L Albumin 3.8 L (3.9-5) g/dL Diabetes panel 12/08/17 Range/Units 06:18 Sodium 141 (137-145) mmol/L Potassium 4.4 (3.6-5.0) mmol/L Chloride 104.2 (98-107) mmol/L Carbon Dioxide 23 (22-30) mmol/L BUN 16 (9-20) mg/dL Creatinine 0.8 (0.8-1.5) mg/dL Glucose 117 H (75-100) mg/dL Calcium 8.6 (8.4-10.2) mg/dL AST 135 H (5-40) units/L ALT 240 H (7-56) units/L Alkaline Phosphatase 149 H (35-129) units/L Total Protein 7.1 (6.3-8.2) g/dL Albumin 3.8 L (3.9-5) g/dL Calcium panel 12/08/17 Range/Units 06:18 Calcium 8.6 (8.4-10.2) mg/dL Albumin 3.8 L (3.9-5) g/dL Pituitary panel 12/08/17 Range/Units 06:18 Sodium 141 (137-145) mmol/L Potassium 4.4 (3.6-5.0) mmol/L Chloride 104.2 (98-107) mmol/L Carbon Dioxide 23 (22-30) mmol/L BUN 16 (9-20) mg/dL Creatinine 0.8 (0.8-1.5) mg/dL Glucose 117 H (75-100) mg/dL Calcium 8.6 (8.4-10.2) mg/dL Adrenal panel 12/08/17 Range/Units 06:18 Sodium 141 (137-145) mmol/L Potassium 4.4 (3.6-5.0) mmol/L Chloride 104.2 (98-107) mmol/L Carbon Dioxide 23 (22-30) mmol/L BUN 16 (9-20) mg/dL Creatinine 0.8 (0.8-1.5) mg/dL Glucose 117 H (75-100) mg/dL Calcium 8.6 (8.4-10.2) mg/dL Total Bilirubin 3.00 H (0.1-1.2) mg/dL AST 135 H (5-40) units/L ALT 240 H (7-56) units/L Alkaline Phosphatase 149 H (35-129) units/L Total Protein 7.1 (6.3-8.2) g/dL Albumin 3.8 L (3.9-5) g/dL - Imaging CT scan - abdomen: report reviewed, image reviewed US - abdomen: report reviewed Assessment and Plan - Patient Problems (1) Choledocholithiasis with obstruction Current Visit: Yes Status: Acute Qualifiers: Cholecystitis presence: without cholecystitis Qualified Code(s): K80.51 - Calculus of bile duct without cholangitis or cholecystitis with obstruction Plan to address problem: Pt stable. Labs are improving. appears as though he has probably passed the stone. Discussed surgery, risks, benefits, and alternatives. Pt wishes at this time to try dietary/lifestyle changes first. Has agreed to f/u in the office. Will consult dietary. I do not think there are any infection issues so the Abx can be discontinued. The elevated CBC numbers are probably concentrated due to dehydration. Discussed with Dr. Gonzalez. Time=60min (2) Chest pain at rest Current Visit: Yes Status: Acute Plan to address problem: Discussed with Dr. Gonzalez. Suggested that he be seen by Cardiology either in or out-patient. his sx's sound concerning. In addition, he would be helpful to get a cardiology assessment in case he decides to have surgery. Dr. Gonzalez said he would consult cardiology.
--- NOTE | 2017-12-08 15:56 | Consultation ---
History of Present Illness Consult date: 12/08/17 Consult reason: chest pain History of present illness: This is a 52yr old male who presents with acute epigastric pain and elevated transaminitis. In addition, patient complains of intermittent chest pain associated with left arm numbness. Patient denies shortness of breath and palpitations. Patient denies a prior cardiac history and prior cardiac workup. Abdominal ultrasound reports gallstones. MRCP benign. A 12 lead ECG is a normal sinus rhythm. Cardiology consultation was requested for further evaluation of chest pain. Past History Social history: denies: smoking, alcohol abuse, IV drug use Family history: other (gallbladder problems with mom and sister) Medications and Allergies Allergies Allergy/AdvReac Type Severity Reaction Status Date / Time No Known Allergies Allergy Verified 01/15/16 12:01 Home Medications Medication Instructions Recorded Confirmed Last Taken Type Ranitidine HCl [Zantac 150 MG TAB] 150 mg PO BID 12/07/17 12/07/17 1 Day Ago History ~12/06/17 Active Meds: Active Medications Acetaminophen (Tylenol) 650 mg PO Q4H PRN PRN Reason: Pain, Mild (1-3) Last Admin: 12/08/17 05:32 Dose: 650 mg Bisacodyl (Dulcolax) 10 mg [place] QDAY PRN PRN Reason: Constipation unrelieved by MOM Enoxaparin Sodium (Lovenox) 40 mg SUB-Q QDAY@2200 [facility] Famotidine (Pepcid) 20 mg IV BID [facility] Last Admin: 12/08/17 09:54 Dose: 20 mg Hydromorphone HCl (Dilaudid) 1 mg IV Q3H PRN PRN Reason: Pain , Severe (7-10) Dextrose/Sodium Chloride (D5ns) 1,000 mls @ 100 mls/hr IV DIRECT [facility] Last Admin: 12/08/17 14:16 Dose: 100 mls/hr Magnesium Hydroxide (Milk Of Magnesia) 30 ml PO Q4H PRN PRN Reason: Constipation Morphine Sulfate (Morphine) 2 mg IV Q4H PRN PRN Reason: Pain, Moderate (4-6) Ondansetron HCl (Zofran) 4 mg IV Q8H PRN PRN Reason: N/V unrelieved by Reglan Physical Examination Vital Signs Temp Pulse Resp BP Pulse Ox 98.2 F 65 18 128/75 97 12/06/17 19:29 12/06/17 19:29 12/06/17 19:29 12/06/17 19:29 12/06/17 19:29 General appearance: no acute distress HEENT: Positive: PERRL Neck: Positive: trachea midline Cardiac: Positive: Reg Rate and Rhythm Lungs: Positive: Decreased Breath Sounds Neuro: Positive: Grossly Intact Results 12/08/17 06:18 12/08/17 06:18 Cardiac Enzymes 12/08/17 Range/Units 06:18 AST 135 H (5-40) units/L CBC 12/08/17 Range/Units 06:18 WBC 10.9 (4.5-11.0) K/mm3 RBC 5.52 H (3.65-5.03) M/mm3 Hgb 16.0 H (11.8-15.2) gm/dl Hct 47.2 H (35.5-45.6) % Plt Count 206 (140-440) K/mm3 Lymph # 0.9 L (1.2-5.4) K/mm3 [place] # 1.1 H (0.0-0.8) K/mm3 Eos # 0.0 (0.0-0.4) K/mm3 Baso # 0.0 (0.0-0.1) K/mm3 Comprehensive Metabolic Panel 12/08/17 Range/Units 06:18 Sodium 141 (137-145) mmol/L Potassium 4.4 (3.6-5.0) mmol/L Chloride 104.2 (98-107) mmol/L Carbon Dioxide 23 (22-30) mmol/L BUN 16 (9-20) mg/dL Creatinine 0.8 (0.8-1.5) mg/dL Glucose 117 H (75-100) mg/dL Calcium 8.6 (8.4-10.2) mg/dL AST 135 H (5-40) units/L ALT 240 H (7-56) units/L Alkaline Phosphatase 149 H (35-129) units/L Total Protein 7.1 (6.3-8.2) g/dL Albumin 3.8 L (3.9-5) g/dL Assessment and Plan - Patient Problems (1) Chest pain at rest Current Visit: Yes Status: Acute Plan to address problem: -negative ECG -negative troponins Plan: We will get a treadmill thallium test for further cardiac evaluation.
--- NOTE | 2017-12-08 16:46 | Progress Note ---
Assessment and Plan Assessment and plan: 52-year-old male presents to the emergency department with complaint of a 3-4 day history of pain in the RUQ and the upper epigastric abdomen. He says that it worsens after eating and it is a burning sensation. Imaging studies showed cholelithasis with no acute cholecystitis and also a CBD that appears to have passed a stone although no visbile stone in the CBD on MRI Atypical chest pain likely costochondritis will evaluate. SIRS Choledocholithiasis with possible transition stone. Cholileithiasis Plan Supportive care Pain control Patient would rather have surgery outpatient We'll follow with surgeon We'll obtain cardiology to give cardiac clearance considering recent complaint of chest pain Nutritional consult for bland diet education DVT and GI prophylaxis Discussed plan of care with surgery History Interval history: Patient seen and examined at night acute distress reports mild improvement in the right upper quadrants pain. Reported that he has been having intermittent left-sided chest pain radiating down to his arm. Denies any shortness of breath. Denies any prior history of cardiac workup. Hospitalist Physical - Physical exam Narrative exam: VITAL SIGNS: Reviewed. GENERAL: The patient appeared well nourished and normally developed. Vital signs as documented. HEAD: No signs of head trauma. EYES: Pupils are equal. Extraocular motions intact. EARS: Hearing grossly intact. MOUTH: Oropharynx is normal. NECK: No adenopathy, no JVD. CHEST: Chest with clear breath sounds bilaterally. No wheezes, rales, or rhonchi. CARDIAC: Regular rate and rhythm. S1 and S2, without murmurs, gallops, or rubs. VASCULAR: No Edema. Peripheral pulses normal and equal in all extremities. ABDOMEN: Soft, without detectable tenderness. No sign of distention. No rebound or guarding, and no masses palpated. Bowel Sounds normal. MUSCULOSKELETAL: Good range of motion of all major joints. Extremities without clubbing, cyanosis or edema. NEUROLOGIC EXAM: Alert and oriented x 3. No focal sensory or strength deficits. Speech normal. Follows commands. PSYCHIATRIC: Mood normal. SKIN: No rash or lesions. - Constitutional Vitals: Temp Pulse Resp BP Pulse Ox 99.1 F 73 20 108/89 97 12/08/17 11:20 12/08/17 11:20 12/08/17 11:20 12/08/17 11:20 12/08/17 11:20 General appearance: Present: no acute distress Results - Labs CBC & Chem 7: 12/08/17 06:18 12/08/17 06:18 Labs: Laboratory Last Values WBC 10.9 K/mm3 (4.5-11.0) 12/08/17 06:18 RBC 5.52 M/mm3 (3.65-5.03) H 12/08/17 06:18 Hgb 16.0 gm/dl (11.8-15.2) H 12/08/17 06:18 Hct 47.2 % (35.5-45.6) H 12/08/17 06:18 MCV 86 fl (84-94) 12/08/17 06:18 MCH 29 pg (28-32) 12/08/17 06:18 MCHC 34 % (32-34) 12/08/17 06:18 RDW 13.5 % (13.2-15.2) 12/08/17 06:18 Plt Count 206 K/mm3 (140-440) 12/08/17 06:18 Lymph % (Auto) 8.1 % (13.4-35.0) L 12/08/17 06:18 Rankin % (Auto) 9.7 % (0.0-7.3) H 12/08/17 06:18 Eos % (Auto) 0.1 % (0.0-4.3) 12/08/17 06:18 Baso % (Auto) 0.3 % (0.0-1.8) 12/08/17 06:18 Lymph # 0.9 K/mm3 (1.2-5.4) L 12/08/17 06:18 [place] # 1.1 K/mm3 (0.0-0.8) H 12/08/17 06:18 Eos # 0.0 K/mm3 (0.0-0.4) 12/08/17 06:18 Baso # 0.0 K/mm3 (0.0-0.1) 12/08/17 06:18 Seg Neutrophils % 81.8 % (40.0-70.0) H 12/08/17 06:18 Seg Neutrophils # 8.9 K/mm3 (1.8-7.7) H 12/08/17 06:18 Sodium 141 mmol/L (137-145) 12/08/17 06:18 Potassium 4.4 mmol/L (3.6-5.0) 12/08/17 06:18 Chloride 104.2 mmol/L (98-107) 12/08/17 06:18 Carbon Dioxide 23 mmol/L (22-30) 12/08/17 06:18 Anion Gap 18 mmol/L 12/08/17 06:18 BUN 16 mg/dL (9-20) 12/08/17 06:18 Creatinine 0.8 mg/dL (0.8-1.5) 12/08/17 06:18 Estimated GFR > 60 ml/min 12/08/17 06:18 BUN/Creatinine Ratio 20 % 12/08/17 06:18 Glucose 117 mg/dL (75-100) H 12/08/17 06:18 Calcium 8.6 mg/dL (8.4-10.2) 12/08/17 06:18 Total Bilirubin 3.00 mg/dL (0.1-1.2) H 12/08/17 06:18 Direct Bilirubin 2.5 mg/dL (0-0.2) H 12/07/17 10:26 Indirect Bilirubin 2.5 mg/dL 12/07/17 10:26 AST 135 units/L (5-40) H 12/08/17 06:18 ALT 240 units/L (7-56) H 12/08/17 06:18 Alkaline Phosphatase 149 units/L (35-129) H 12/08/17 06:18 Troponin T < 0.010 ng/mL (0.00-0.029) 12/07/17 02:17 Total Protein 7.1 g/dL (6.3-8.2) 12/08/17 06:18 Albumin 3.8 g/dL (3.9-5) L 12/08/17 06:18 Albumin/Globulin Ratio 1.2 % 12/08/17 06:18 Lipase 21 units/L (13-60) 12/07/17 10:26
[2017-12-08] MEDS ORDERED: LOVENOX SUB-Q SCH (22:00)
[2017-12-09] MEDS: D5NS 1,000 ML IV SCH (00:19)
[2017-12-09] MEDS: TYLENOL PO PRN ×2 (06:40→11:50)
--- NOTE | 2017-12-09 09:13 | Discharge Summary ---
Providers - Providers Date of Admission: 12/07/17 12:23 Attending physician: BJORN SMITH MD 12/07/17 12:52 Consult to Physician [CONS] Routine Consulting Provider: JOSÉ MIGUEL HERNANDEZ Reason For Exam: choledolithiasis Place consult to:: GI Notified:: Y Was contact made?: Yes If yes, spoke with:: Dr Hernandez Time called:: 12:05 12/08/17 01:29 Consult to Physician [CONS] Routine Consulting Provider: PIOTR HOWARD Reason For Exam: choledocholithiasis Place consult to:: Office Notified:: yes Phone number called:: [phone] Was contact made?: Yes If yes, spoke with:: Lilian Time called:: 09:53 12/08/17 10:34 Consult to Dietitian/Nutrition [CONS] Routine Physician Instructions: Needs info for bland diet - no fried/fatty foods Reason For Exam: Reason for Consult: Diet education 12/08/17 10:42 Consult to Physician [CONS] Routine Consulting Provider: JAXON GLASGOW Reason For Exam: CHEST PAIN. CARDIAC CLEARANCE Place consult to:: In-house Notified:: yes Primary care physician: WILSON ESPARZA Hospitalization Reason for admission: abdominal Condition: Stable Hospital course: 52-year-old male presents to the emergency department with complaint of a 3-4 day history of pain in the RUQ and the upper epigastric abdomen. He says that it worsens after eating and it is a burning sensation. Imaging studies showed cholelithasis with no acute cholecystitis and also a CBD that appears to have passed a stone although no visbile stone in the CBD on MRI. pATIENT WAS SEEN BY SURGERY AND ALSO BY CARDIOLOGY OUTPATIENT WORKUP WAS RECOMMENDED PATIENT REFUSED INPATIENT LAPAROSCOPIC CHOLECYSTECTOMY. dISCHARGE DIAGNOSIS Atypical chest pain SECONDARY TO CHOLEDOCHOLITHIASIS OR RADIATING PAIN. SIRS Choledocholithiasis with possible transition stone. Cholileithiasis Disposition: TO HOME OR SELFCARE Time spent for discharge: 35 mins Core Measure Documentation - Palliative Care Palliative Care/ Comfort Measures: Not Applicable - Core Measures Any of the following diagnoses?: none - VTE Discharge Requirements Deep Vein Thrombosis/Pulmonary Embolism Present on Admission: No Exam - Physical Exam Narrative exam: VITAL SIGNS: Reviewed. GENERAL: The patient appeared well nourished and normally developed. Vital signs as documented. HEAD: No signs of head trauma. EYES: Pupils are equal. Extraocular motions intact. EARS: Hearing grossly intact. MOUTH: Oropharynx is normal. NECK: No adenopathy, no JVD. CHEST: Chest with clear breath sounds bilaterally. No wheezes, rales, or rhonchi. CARDIAC: Regular rate and rhythm. S1 and S2, without murmurs, gallops, or rubs. VASCULAR: No Edema. Peripheral pulses normal and equal in all extremities. ABDOMEN: Soft, without detectable tenderness. No sign of distention. No rebound or guarding, and no masses palpated. Bowel Sounds normal. MUSCULOSKELETAL: Good range of motion of all major joints. Extremities without clubbing, cyanosis or edema. NEUROLOGIC EXAM: Alert and oriented x 3. No focal sensory or strength deficits. Speech normal. Follows commands. PSYCHIATRIC: Mood normal. SKIN: No rash or lesions. - Constitutional Vitals: Temp Pulse Resp BP Pulse Ox 98.2 F 73 16 118/73 93 12/09/17 07:35 12/09/17 07:18 12/09/17 07:35 12/09/17 07:35 12/09/17 07:18 Plan Activity: advance as tolerated, fall precautions Diet: low cholesterol Special Instructions: record daily BP diary Follow up with: WILSON ESPARZA MD [Primary Care Provider] - 3-5 Days LINNETTE DOSS MD [Staff Physician] - 7 Days Prescriptions: Amoxicillin/K Clav Tab [Augmentin 875MG TAB] 1 each PO Q12HR #8 tablet traMADol [Ultram] 50 mg PO Q6HR PRN #14 tablet PRN Reason: Pain
[2017-12-09] MEDS: PEPCID IV SCH (10:00)
[2017-12-09] MEDS ORDERED: AUGMENTIN 875 MG PO SCH (10:00)
[2017-12-09] MEDS ORDERED: PEPCID PO SCH (10:15)
--- NOTE | 2017-12-09 10:24 | Progress Note ---
Assessment and Plan - Patient Problems (1) Choledocholithiasis with obstruction Current Visit: Yes Status: Acute Qualifiers: Cholecystitis presence: without cholecystitis Qualified Code(s): K80.51 - Calculus of bile duct without cholangitis or cholecystitis with obstruction Plan to address problem: Pt stable. Pt report that he is doing well and ready to go home. He understands the plan. Regardless, I went over it again. Cards will evaluate him formally as an out-pt should he decide on surgery. We would be happy to see him in the office in 2-3 weeks to f/u with him and discuss surgery. All questions answered. Used translator/interpreter phone line. Time=10min (2) Chest pain at rest Current Visit: Yes Status: Acute Plan to address problem: Seen by Cardiology. Will do formal eval as out-pt if pt decides on having surgery. Subjective Date of service: 12/09/17 Patient Reports: Positive: no new complaints, feels better (no pain today). Negative: nausea, vomiting Objective Vital Signs - 12hr 12/08/17 12/09/17 12/09/17 23:56 04:17 07:18 Temperature 98.8 F 100.5 F H Pulse Rate 69 68 73 Respiratory 20 20 Rate Blood Pressure 109/76 130/74 O2 Sat by Pulse 94 96 93 Oximetry 12/09/17 07:35 Temperature 98.2 F Pulse Rate Respiratory 16 Rate Blood Pressure 118/73 O2 Sat by Pulse Oximetry - General physical appearance well developed, well nourished, no distress, no pain - Eyes normal occular movement - Respiratory normal expansion, normal respiratory effort - Abdomen soft - Integumentary no rash - Psychiatric oriented to time, oriented to person, oriented to place, speech is normal, memory intact - Labs 12/08/17 06:18 12/08/17 06:18
--- NOTE | 2017-12-09 11:10 | Progress Note ---
Assessment and Plan Symptomatic gallbladder disease Atypical chest pain EKG is sinus rhythm with no ischemic changes. pt currently denies chest pain Recommendations: Patient does not require surgery, and preoperative cardiac assessment will be deferred until surgery as needed at the later date. Otherwise, no indication for further inpatient cardiac workup at this time, recommend patient to follow up in our office one week after discharge. Subjective Date of service: 12/09/17 Interval history: Patient denies chest pain and shortness of breath. Objective Vital Signs Temp Pulse Resp BP Pulse Ox 12/09/17 07:35 98.2 F 16 118/73 12/09/17 07:18 73 93 12/09/17 04:17 100.5 F H 68 20 130/74 96 12/08/17 23:56 98.8 F 69 20 109/76 94 12/08/17 19:48 100.8 F H 83 20 133/82 94 12/08/17 15:21 99.9 F H 81 20 137/85 94 12/08/17 11:20 99.1 F 73 20 108/89 97 - Physical Examination General: No Apparent Distress HEENT: Positive: PERRL Neck: Positive: trachea midline Cardiac: Positive: Reg Rate and Rhythm Lungs: Positive: Decreased Breath Sounds Neuro: Positive: Grossly Intact - Imaging and Cardiology EKG: report reviewed (NSR 82)
[2017-12-09 12:39] VITALS: BP 124/79
--- NOTE | 2017-12-09 12:40 | Gastroenterology Progress Note ---
Assessment and Plan GI: no problems overnight - for lap eusebio with [facility] as outpt - ok to d/c from GI standpoint, will sign off, call if needed Subjective Date of service: 12/09/17 Interval history: - no problems overnight Objective - Constitutional Vitals: Temp Pulse Resp BP Pulse Ox 98.2 F 73 18 118/73 93 12/09/17 07:35 12/09/17 07:18 12/09/17 12:26 12/09/17 07:35 12/09/17 07:18 General appearance: no acute distress - Respiratory Respiratory: bilateral: CTA - Cardiovascular Rhythm: regular Heart Sounds: Present: S1 & S2 - Gastrointestinal General gastrointestinal: Present: soft, non-tender, non-distended - Labs CBC & Chem 7: 12/08/17 06:18 12/08/17 06:18
== END 2017-12-09 13:15 | disposition home or self-care (01) | DRG 444 ==
LOC: ED 16:59 → 3B-SURG 12-07 12:23
PROVIDERS: ADMIT Internal Medicine; ATTEND Internal Medicine
DX: K80.71 Calculus of gallbladder and bile duct without cholecystitis with obstruction (principal); R65.11 Systemic inflammatory response syndrome (SIRS) of non-infectious origin with acute organ dysfunction; Z53.29 Procedure and treatment not carried out because of patient's decision for other reasons; E80.6 Other disorders of bilirubin metabolism; Z79.899 Other long term (current) drug therapy; Z84.89 Family history of other specified conditions
CPT/HCPCS: 36415; 74022; 74181; 76705; 80048; 80053; 80074; 83690; 84484; 85025; 93005; 93010; J1644; J1650; J2543; J7042